=== PATIENT | male | born 1975 ===

== ENCOUNTER → 2017-11-28 | Emergency (ER) | payer OTHER ==
[~2017-11-28] VITALS: Ht 180.3 cm; Wt 87.5 kg
== END | disposition left against medical advice (07) ==
LOC: ER 00:21
DX: Z53.20 Procedure and treatment not carried out because of patient's decision for unspecified reasons (principal)

== ENCOUNTER 2023-10-31 10:34 | Outpatient (CLI) | payer OTHER | END 2023-10-31 10:38 | disposition home or self-care (01) | LOC: SONOGRAMA 10:34 | PROVIDERS: ATTEND Pathology Anatomic Pathology | DX: D34 Benign neoplasm of thyroid gland (principal); E07.89 Other specified disorders of thyroid; E04.1 Nontoxic single thyroid nodule ==

== ENCOUNTER 2024-10-18 11:29 | Outpatient (CLI) | payer OTHER | END 2024-10-18 11:31 | disposition home or self-care (01) | LOC: SONOGRAMA 11:29 | PROVIDERS: ATTEND Pathology Anatomic Pathology | DX: E04.1 Nontoxic single thyroid nodule (principal) ==